=== PATIENT | male | born 1980 | race Caucasian/White ===

== ENCOUNTER 2018-08-23 13:21 | Emergency (ER) | payer SELFPAY ==
[~2018-08-23] VITALS: Ht 172.7 cm; Wt 93.0 kg
[2018-08-23 13:33] VITALS: BP 144/92
--- NOTE | 2018-08-23 13:33 | NUR ---
Patient ambulated to bed 9. RN evaluating patient at bedside.
--- NOTE | 2018-08-23 13:40 | NUR ---
c/o right lower molar pain >1 month---exacerbated "days ago" had finished a course of amoxicillin DENIES N/V/D; LUNGS CLEAR BL; HR EVEN AND REGULAR; PT DENIES ANY FEVER, CP, SOB, OR COUGH AT THIS TIME; PATIENT STATES PAIN OF 8/10 AT THIS TIME; VSS; PATIENT POSITIONED SITTING FOR COMFORT; ER MD MADE AWARE OF PT STATUS.
--- NOTE | 2018-08-23 14:23 | NUR ---
Patient discharged with v/s stable. Written and verbal after care instructions given and explained. Patient alert, oriented and verbalized understanding of instructions. Ambulatory with steady gait. All questions addressed prior to discharge. Patient advised to follow up with PMD. Rx of Naprosyn and Penicillin given. Patient educated on indication of medication including possible reaction and side effects. Opportunity to ask questions provided and answered. Pt was discharged by .
[2018-08-23 14:24] VITALS: BP 140/91
== END 2018-08-23 14:23 | disposition home or self-care (01) ==
LOC: MED 13:21
DX: K04.7 Periapical abscess without sinus (principal)
CPT/HCPCS: 99283